=== PATIENT | female | born 1985 | race Caucasian/White ===

== ENCOUNTER 2018-02-09 12:11 | Emergency (ER) | payer MEDICAID ==
[2018-02-09] MEDS ORDERED: Sodium Chloride 0.9% 5 ML Syringe FLUSH PRN (12:50)
--- NOTE | 2018-02-09 12:56 | EDM.PDOC ---
ED HPI GENERAL MEDICAL PROBLEM - General Chief Complaint: General Stated Complaint: right sided chest pain Time Seen by Provider: 02/09/18 12:45 Source of Information: Reports: Patient History Limitations: Reports: No Limitations - History of Present Illness INITIAL COMMENTS - FREE TEXT/NARRATIVE: 33 YO WF complaining of right sided rib pain which began 1 week ago. Pt unsure if she had any injury but states her pain has become worse over the last 3 days. Pt denies any shortness of breath but states her pain is worse with deep inspiration. Pt reports tobacco use and hormone replacement therapy due to hysterectomy and history of pituitary adenoma. Pt denies exertional shortness of breath, diaphoresis, nausea/vomiting or radiating chest pain. Pt denies any recent illness, no coughing or hemotysis. Onset Date: 02/02/18 Duration: Week(s): (1) Location: Reports: Chest Quality: Reports: Ache Severity: Moderate Improves with: Reports: Rest Worsens with: Reports: Movement Associated Symptoms: Reports: Chest Pain. 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 Right Anterior Thoracic Pain Score (Numeric/FACES): 7 - Related Data Allergies Allergy/AdvReac Type Severity Reaction Status Date / Time acetaminophen Allergy Hives Verified 02/09/18 12:31 [From Tylenol-Codeine] codeine Allergy Hives Verified 02/09/18 12:31 [From Tylenol-Codeine] ketorolac [From Toradol] Allergy Hives Verified 02/09/18 13:56 naproxen Allergy Hives Verified 02/09/18 12:31 tramadol Allergy Hives Verified 02/09/18 12:31 Home Meds: Home Meds Estradiol 1 mg PO DAILY 02/09/18 [History] Hydrocodone/Acetaminophen [Hydrocodon-Acetaminophen 5-325] 1 each PO Q4HR PRN # 10 tablet 02/09/18 [Rx] Hydrocortisone 5 mg PO DAILY@1600 02/09/18 [History] Hydrocortisone 10 mg PO DAILY 02/09/18 [History] lamoTRIgine [Lamotrigine] 150 mg PO DAILY 02/09/18 [History] valACYclovir [Valtrex] 500 mg PO DAILY 02/09/18 [History] Social & Family History - Tobacco Use Smoking Status *Q: Current Every Day Smoker Years of Tobacco use: 15 Packs/Tins Daily: 0.5 Second Hand Smoke Exposure: Yes - Caffeine Use Caffeine Use: Reports: Energy Drinks, Soda - Recreational Drug Use Recreational Drug Use: No ED ROS GENERAL - Review of Systems Review Of Systems: See Below Constitutional: Reports: No Symptoms HEENT: Reports: No Symptoms Respiratory: Reports: Pleuritic Chest Pain Cardiovascular: Reports: Chest Pain Endocrine: Reports: No Symptoms GI/Abdominal: Reports: No Symptoms : Reports: No Symptoms Musculoskeletal: Reports: No Symptoms Skin: Reports: No Symptoms Neurological: Reports: No Symptoms Psychiatric: Reports: No Symptoms Hematologic/Lymphatic: Reports: No Symptoms Immunologic: Reports: No Symptoms ED EXAM, GENERAL - Physical Exam Exam: See Below Exam Limited By: No Limitations General Appearance: Alert, WD/WN, No Apparent Distress Nose: Normal Inspection, Normal Mucosa, No Blood Throat/Mouth: Normal Inspection, Normal Lips, Normal Teeth, Normal Gums, Normal Oropharynx, Normal Voice, No Airway Compromise Head: Atraumatic, Normocephalic Neck: Normal Inspection, Supple, Non-Tender, Full Range of Motion Respiratory/Chest: No Respiratory Distress, Lungs Clear, Normal Breath Sounds, No Accessory Muscle Use, Chest Non-Tender Cardiovascular: Normal Peripheral Pulses, Regular Rate, Rhythm, No Edema, No Gallop, No JVD, No Murmur, No Rub GI/Abdominal: Normal Bowel Sounds, Soft, Non-Tender, No Organomegaly, No Distention, No Abnormal Bruit, No Mass Back Exam: Normal Inspection, Full Range of Motion, NT Extremities: Normal Inspection, Normal Range of Motion, Non-Tender, Normal Capillary Refill, No Pedal Edema Neurological: Alert, Oriented, CN II-XII Intact, Normal Cognition, Normal Gait, Normal Reflexes, No Motor/Sensory Deficits Psychiatric: Normal Affect, Normal Mood EKG INTERPRETATION EKG Date: 02/09/18 Time: 12:58 Rhythm: NSR Rate (Beats/Min): 72 [place]: Normal P-Wave: Present QRS: Normal ST-T: Normal QT: Normal Comparison: NA - No Prior EKG Course - Vital Signs Last Recorded V/S: Last Vital Signs Temp 36.6 C 02/09/18 12:26 Pulse 77 02/09/18 12:26 Resp 18 02/09/18 12:26 BP 117/76 02/09/18 12:26 Pulse Ox 100 02/09/18 12:26 - Orders/Labs/Meds Orders: Active Orders 24 hr Category Date Time Status EKG Documentation Completion [RC] ASDIRECTED Care 02/09/18 12:37 Active Peripheral IV Care [RC] . DIRECTED Care 02/09/18 12:51 Active Chest 2V [CR] Stat Exams 02/09/18 12:36 Ordered Sodium Chloride 0.9% [Syrex Flush] Med 02/09/18 12:50 Active 5 ml FLUSH Q8HR PRN Peripheral IV Insertion Adult [OM.PC] Routine Oth 02/09/18 12:50 Ordered EKG 12 Lead [EK] Routine Ther 02/09/18 12:36 Ordered Medication Orders Sodium Chloride (Syrex Flush) 5 ml FLUSH Q8HR PRN PRN Reason: Keep Vein Open Labs: Laboratory Tests 02/09/18 02/09/18 02/09/18 Range/Units 13:00 13:00 13:00 WBC 10.74 H (5.00-10.00) 10^3/uL RBC 4.88 (3.80-5.50) 10^6/uL Hgb 15.1 (12.0-16.0) g/dL Hct 44.9 (37.0-47.0) % MCV 92.0 (82.0-92.0) fL MCH 30.9 (27.0-31.0) pg MCHC 33.6 (32.0-36.0) g/dL RDW 13.2 (11.5-14.5) % Plt Count 307 (150-400) 10^3/uL MPV 8.9 (7.4-10.4) fL Immature Gran % (Auto) 0.2 (0.0-5.0) % Neut % (Auto) 71.3 H (50.0-70.0) % Lymph % (Auto) 22.3 (20.0-40.0) % [place] % (Auto) 5.3 (2.0-8.0) % Eos % (Auto) 0.5 L (1.0-3.0) % Baso % (Auto) 0.4 (0.0-1.0) % Immature Gran # (Auto) 0.02 (0.00-0.50) 10^3/uL Neut # (Auto) 7.67 H (2.50-7.00) 10^3/uL Lymph # (Auto) 2.39 (1.00-4.00) 10^3/uL [place] # (Auto) 0.57 (0.10-0.80) 10^3/uL Eos # (Auto) 0.05 L (0.10-0.30) 10^3/uL Baso # (Auto) 0.04 (0.00-0.10) 10^3/uL D-Dimer, Quantitative < 100 (<400) ng/mL Sodium 142 (136-145) mmol/L Potassium 3.7 (3.3-5.3) mmol/L Chloride 105 (98-115) mmol/L Carbon Dioxide 28.3 (21.0-32.0) mmol/L Anion Gap 12.4 (5-15) mmol/L BUN 9 (6-25) mg/dL Creatinine 0.77 (0.51-1.17) mg/dL Est Cr Clr Drug Dosing 102.00 mL/min Estimated GFR (MDRD) > 60 mL/min Glucose 97 mg/dL Calcium 8.7 (8.7-10.3) mg/dL Total Bilirubin 0.3 (0.2-1.0) mg/dL AST 19 (15-37) U/L ALT 27 (12-78) U/L Alkaline Phosphatase 85 (46-116) IU/L Creatine Kinase 81 (26-276) U/L CK-MB (CK-2) 1.10 (0.00-4.30) ng/mL Troponin I 0.04 (0.00-0.070) ng/mL Total Protein 7.2 (6.4-8.2) g/dL Albumin 3.94 (3.00-4.80) g/dL Meds: Medications Generic Name Dose Route Start Last Admin Trade Name Freq PRN Reason Stop Dose Admin Sodium Chloride 5 ml 02/09/18 12:50 Syrex Flush FLUSH Q8HR PRN Keep Vein Open - Radiology Interpretation Free Text/Narrative:: CXR- NAD Departure - Departure Time of Disposition: 13:50 Disposition: Home, Self-Care 01 Condition: Good Clinical Impression: Chest wall pain - Discharge Information Prescriptions: Hydrocodone/Acetaminophen [Hydrocodon-Acetaminophen 5-325] 1 each PO Q4HR PRN # 10 tablet PRN Reason: Pain Instructions: Chest Wall Pain, [id number] Referrals: PCP,Not In Area [Primary Care Provider] - Forms: ED Department Discharge Additional Instructions: 1. Discharge home 2. motrin 800mg PO TID x 5 days 3. supportive care 4. follow up in clinic for further evaluation and treatment 5. return to ER for worsening symptoms - My Orders Last 24 Hours: My Active Orders 02/09/18 12:36 Chest 2V [CR] Stat EKG 12 Lead [EK] Routine 02/09/18 12:37 EKG Documentation Completion [RC] ASDIRECTED 02/09/18 12:50 Sodium Chloride 0.9% [Syrex Flush] 5 ml FLUSH Q8HR PRN Peripheral IV Insertion Adult [OM.PC] Routine 02/09/18 12:51 Peripheral IV Care [RC] . DIRECTED - Assessment/Plan Last 24 Hours: My Active Orders 02/09/18 12:36 Chest 2V [CR] Stat EKG 12 Lead [EK] Routine 02/09/18 12:37 EKG Documentation Completion [RC] ASDIRECTED 02/09/18 12:50 Sodium Chloride 0.9% [Syrex Flush] 5 ml FLUSH Q8HR PRN Peripheral IV Insertion Adult [OM.PC] Routine 02/09/18 12:51 Peripheral IV Care [RC] . DIRECTED Assessment:: 1. Chest wall pain 2. tobacco use- education on stopping smoking especially with HRT Plan: 1. Discharge home 2. motrin 800mg PO TID x 5 days 3. supportive care 4. follow up in clinic for further evaluation and treatment 5. return to ER for worsening symptoms
[2018-02-09 13:42] LABS: ANION GAP 12.4 mmol/L (5-15); CHLORIDE,CL 105 mmol/L (98-115); SODIUM,NA 142 mmol/L (136-145)
[2018-02-09] MEDS ORDERED: Ketorolac 60 MG/2 ML SDV IM ONE (13:47)
[2018-02-09] MEDS ORDERED: Ketorolac 30 MG/ML SDV IVPUSH ONE (13:49)
[2018-02-09] MEDS ORDERED: Acetaminophen/HYDROcodone 325-10 MG Tab PO ONE (13:56)
== END 2018-02-09 14:10 | disposition home or self-care (01) ==
LOC: KA.ED 12:11
DX: R07.89 Other chest pain (principal); F17.210 Nicotine dependence, cigarettes, uncomplicated; Z88.5 Allergy status to narcotic agent; Z88.8 Allergy status to other drugs, medicaments and biological substances; Z79.899 Other long term (current) drug therapy; Z79.890 Hormone replacement therapy; Z90.710 Acquired absence of both cervix and uterus
CPT/HCPCS: 71046; 80053; 82550; 82553; 84484; 85025; 85379; 93005; 99284; A9270

== ENCOUNTER 2018-07-13 14:00 | Emergency (ER) | payer MEDICAID ==
--- NOTE | 2018-07-13 14:53 | EDM.PDOC ---
ED HPI GENERAL MEDICAL PROBLEM - General Chief Complaint: Lower Extremity Injury/Pain Stated Complaint: leg pain Time Seen by Provider: 07/13/18 14:30 Source of Information: Reports: Patient, Family History Limitations: Reports: No Limitations - History of Present Illness INITIAL COMMENTS - FREE TEXT/NARRATIVE: 33-year-old female presents to the emergency room with an injury to her left lower extremity. Patient states that she slipped on the ice July 03 injuring her lower leg. She was seen in [facility] on 06 July 3 days later. X- rays revealed a minimally displaced proximal fibula fracture. She was given crutches and placed in a knee immobilizer. Patient was scheduled with orthopedics next in [place] for follow-up. Patient became concerned that she was getting the right information and care and became quite anxious with regards to her injury. She presents to the emergency room for further instruction and evaluation. Her pain is well-controlled. She denies numbness or tingling in her lower leg. She denies any ankle pain. She is only tender proximally and lateral of lower leg just distal to the knee. She denies significant swelling. She states that the crutches that she was given are too big for her. She is 5 foot 7 and the crutches are instructed for someone of 5 foot 10 or taller. She is accompanied with her mom. She denies any other extremity injuries. She denies any recent illnesses or other complaints. 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: Other Medication(s) (norco) Left Lower Leg Pain Score (Numeric/FACES): 5 - Related Data Allergies Allergy/AdvReac Type Severity Reaction Status Date / Time acetaminophen Allergy Hives Verified 07/13/18 14:12 [From Tylenol-Codeine] codeine Allergy Hives Verified 07/13/18 14:12 [From Tylenol-Codeine] ketorolac [From Toradol] Allergy Hives Verified 07/13/18 14:12 naproxen Allergy Hives Verified 07/13/18 14:12 tramadol Allergy Hives Verified 07/13/18 14:12 Home Meds: Home Meds Estradiol 1 mg PO DAILY 02/09/18 [History] Hydrocodone/Acetaminophen [Hydrocodon-Acetaminophen 5-325] 1 each PO Q4HR PRN # 10 tablet 02/09/18 [Rx] Hydrocortisone 5 mg PO DAILY@1600 02/09/18 [History] Hydrocortisone 10 mg PO DAILY 02/09/18 [History] lamoTRIgine [Lamotrigine] 150 mg PO BEDTIME 02/09/18 [History] valACYclovir [Valtrex] 500 mg PO BEDTIME 02/09/18 [History] Past Medical History HEENT History: Reports: Impaired Vision Cardiovascular History: Reports: None Respiratory History: Reports: None Gastrointestinal History: Reports: None Genitourinary History: Reports: None 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: Musculoskeletal History: Reports: Fracture Neurological History: Reports: None Psychiatric History: Reports: Anxiety, Bipolar, Depression, PTSD Endocrine/Metabolic History: Reports: Other (See Below) Other Endocrine/Metabolic History: pituitary tumor Hematologic History: Reports: None Immunologic History: Reports: None Oncologic (Cancer) History: Reports: None Dermatologic History: Reports: None - Infectious Disease History Infectious Disease History: Reports: Chicken Pox - Past Surgical History Cardiovascular Surgical History: Reports: None Respiratory Surgical History: Reports: None GI Surgical History: Reports: None Female Surgical History: Reports: Hysterectomy, Salpingo-Oophorectomy, Tubal Ligation 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 Neurological Surgical History: Reports: None Musculoskeletal Surgical History: Reports: None Oncologic Surgical History: Reports: None Dermatological Surgical History: Reports: None Social & Family History - Family History Family Medical History: Noncontributory - Tobacco Use Smoking Status *Q: Current Every Day Smoker Years of Tobacco use: 17 Packs/Tins Daily: 0.5 - Caffeine Use Caffeine Use: Reports: Energy Drinks, Soda Caffeine Use Comment: Drinks "a lot" - Alcohol Use Days Per Week of Alcohol Use: 2 Number of Drinks Per Day: 4 Total Drinks Per Week: 8 - Recreational Drug Use Recreational Drug Use: No Review of Systems - Review of Systems Review Of Systems: ROS reveals no pertinent complaints other than HPI. ED EXAM, GENERAL - Physical Exam Exam: See Below Exam Limited By: No Limitations General Appearance: Alert, WD/WN, No Apparent Distress Nose: Normal Inspection Throat/Mouth: Normal Inspection Head: Atraumatic Neck: Normal Inspection Respiratory/Chest: No Respiratory Distress, No Accessory Muscle Use Peripheral Pulses: 2+: Posterior Tibial (L), Dorsalis Pedis (L) Extremities: Other (Left lower extremity examination reveals normal ankle range of motion she has no bony tenderness medially or laterally. She has no tenderness along the syndesmosis. She has no pain with ankle range of motion. She has good dorsal pedis pulses distally with intact sensation to light touch abouttheankle.Shehasnotendernessalongtheshindistallymidshaftorproximally.Sheisdi stinctlytendertopalpationalongtheproximallateralaspectnearthefibulahead.Shehasfu llkneerangeofmotionfullhiprangeofmotionwithnopain ordiscomfort.Thereisnoswellingabouttheknee.) Course - Vital Signs Last Recorded V/S: Last Vital Signs Temp 97.1 F 07/13/18 14:16 Pulse 81 07/13/18 14:16 Resp 16 07/13/18 14:16 BP 123/67 07/13/18 14:16 Pulse Ox 99 07/13/18 14:16 - Radiology Interpretation Free Text/Narrative:: X-rays from 07/06/18 Left tib-fib radiographs 2 views Interpretation: there is a proximal fibula fracture minimally displaced. Knee and ankle mortise are in place Impression: Left proximal third fibula fracture minimally displaced Departure - Departure Time of Disposition: 15:16 Disposition: Home, Self-Care 01 Condition: Good Clinical Impression: Closed fracture of fibula, proximal, left Qualifiers: Encounter type: initial encounter Fracture morphology: other fracture Qualified Code(s): S82.832A - Other fracture of upper and lower end of left fibula, initial encounter for closed fracture - Discharge Information Instructions: Fibular Ankle Fracture Treated With or Without Immobilization, Adult, Crutch Use, Adult Referrals: PCP,Not In Area [Primary Care Provider] - Forms: ED Department Discharge - Assessment/Plan Assessment:: Left proximal fibula fracture, minimally displaced Plan: 1. Crutches 6 weeks 2. 25 pound light partial weightbearing left 3. Follow-up with orthopedics in 1 month for repeat x-ray left tib-fib. Patient will be seen in outreach clinic in [place] in July.
== END 2018-07-13 15:30 | disposition home or self-care (01) ==
LOC: KA.ED 14:00
DX: S82.832A Other fracture of upper and lower end of left fibula, initial encounter for closed fracture (principal); F41.9 Anxiety disorder, unspecified; F32.9 Major depressive disorder, single episode, unspecified; Z79.899 Other long term (current) drug therapy; W00.0XXA Fall on same level due to ice and snow, initial encounter
CPT/HCPCS: 99283

== ENCOUNTER 2021-04-03 13:15 | Emergency (ER) | payer MEDICAID ==
--- NOTE | 2021-04-03 15:35 | EDM.PDOC ---
ED HPI GENERAL MEDICAL PROBLEM - General Chief Complaint: Respiratory Problem Stated Complaint: CONGESTION Time Seen by Provider: 04/03/21 13:20 Source of Information: Reports: Patient History Limitations: Reports: No Limitations - History of Present Illness INITIAL COMMENTS - FREE TEXT/NARRATIVE: 36-year-old female reports approximately 5 to 6-day history of muscle aches, cough malaise, sore throat, ear pain. She is not aware of any Covid exposure. She is a smoker. She has been taking some [id number] decongestants NyQuil. She denies significant shortness of breath. Her cough has been dry. She lives in [place] and is usually seen at the clinic over there when needed. She denies any nausea or vomiting no abdominal pain no abdominal cramps. No diarrhea. Onset: Gradual Onset Date: 03/29/21 Duration: Day(s):, Constant Location: Reports: Face, Chest Quality: Reports: Ache Severity: Moderate Improves with: Reports: Medication Worsens with: Reports: None Associated Symptoms: Reports: Cough, Malaise. Denies: Confusion, Chest Pain, Diaphoresis, Nausea/Vomiting, Shortness of Breath - Related Data Allergies Allergy/AdvReac Type Severity Reaction Status Date / Time acetaminophen Allergy Hives Verified 04/03/21 13:52 [From Tylenol-Codeine] codeine Allergy Hives Verified 04/03/21 13:52 [From Tylenol-Codeine] ketorolac [From Toradol] Allergy Hives Verified 04/03/21 13:52 naproxen Allergy Hives Verified 04/03/21 13:52 tramadol Allergy Hives Verified 04/03/21 13:52 Home Meds: Home Meds Hydrocortisone 5 mg PO DAILY@1600 02/09/18 [History] Hydrocortisone 10 mg PO DAILY 02/09/18 [History] estradioL [Estradiol] 1 mg PO DAILY 02/09/18 [History] lamoTRIgine [Lamotrigine] 150 mg PO BEDTIME 02/09/18 [History] valACYclovir [Valtrex] 500 mg PO BEDTIME 02/09/18 [History] Past Medical History HEENT History: Reports: Impaired Vision Cardiovascular History: Reports: None Respiratory History: Reports: None Gastrointestinal History: Reports: None Genitourinary History: Reports: None 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: Musculoskeletal History: Reports: Fracture Neurological History: Reports: None Psychiatric History: Reports: Anxiety, Bipolar, Depression, PTSD Endocrine/Metabolic History: Reports: Other (See Below) Other Endocrine/Metabolic History: pituitary tumor Hematologic History: Reports: None Immunologic History: Reports: None Oncologic (Cancer) History: Reports: None Dermatologic History: Reports: None - Infectious Disease History Infectious Disease History: Reports: Chicken Pox - Past Surgical History Cardiovascular Surgical History: Reports: None Respiratory Surgical History: Reports: None GI Surgical History: Reports: None Female Surgical History: Reports: Hysterectomy, Salpingo-Oophorectomy, Tubal Ligation 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 Denies: Fever HEENT: Reports: Ear Pain, Rhinitis, Throat Pain. Denies: Ear Discharge, Throat Swelling Respiratory: Reports: Cough. Denies: Shortness of Breath, Wheezing Cardiovascular: Reports: No Symptoms Endocrine: Reports: No Symptoms GI/Abdominal: Reports: No Symptoms : Reports: No Symptoms Musculoskeletal: Reports: Muscle Pain Skin: Reports: No Symptoms Neurological: Reports: No Symptoms Psychiatric: Reports: No Symptoms Hematologic/Lymphatic: Reports: No Symptoms Immunologic: Reports: No Symptoms ED EXAM, GENERAL - Physical Exam Exam: See Below Exam Limited By: No Limitations General Appearance: Alert, No Apparent Distress, Thin Eye Exam: Bilateral Eye: EOMI, PERRL Ears: Normal External Exam, Normal Canal, Hearing Grossly Normal, Normal TMs Ear Exam: Bilateral Ear: TM normal Nose: Normal Inspection, Normal Mucosa, No Blood, Clear Rhinorrhea Throat/Mouth: Normal Inspection, Normal Oropharynx, Normal Voice, No Airway Compromise Head: Atraumatic, Normocephalic Neck: Normal Inspection, Supple, Non-Tender, Full Range of Motion. No: Lymphadenopathy (L), Lymphadenopathy (R) Respiratory/Chest: No Respiratory Distress, Lungs Clear, Normal Breath Sounds, No Accessory Muscle Use, Chest Non-Tender Cardiovascular: Regular Rate, Rhythm GI/Abdominal: Soft Back Exam: Normal Inspection Extremities: Normal Inspection, No Pedal Edema Neurological: Alert, Oriented, No Motor/Sensory Deficits Skin Exam: Warm, Dry, Intact, Normal Color, No Rash Lymphatic: No Adenopathy Course - Vital Signs Last Recorded V/S: Last Vital Signs Temp 96.7 F L 04/03/21 13:54 Pulse 86 04/03/21 13:54 Resp 20 04/03/21 13:54 BP 107/80 04/03/21 13:54 Pulse Ox 98 04/03/21 13:54 - Orders/Labs/Meds Labs: Laboratory Tests 04/03/21 Range/Units 14:00 SARS CoV-2 RNA Rapid JONATHON Negative (NEGATIVE) Departure - Departure Time of Disposition: 15:30 Disposition: Home, Self-Care 01 Condition: Good Clinical Impression: Viral upper respiratory tract infection with cough - Discharge Information Instructions: Upper Respiratory Infection, Adult, [id number] Referrals: PCP,Not In Area [Primary Care Provider] - Forms: ED Department Discharge Care Plan Goals: 1. Rest 2. Continue and encourage oral hydration and drinking plenty of fluids particularly water. 3. Tylenol for fever 4. Ibuprofen for aches and pains 5. Decongestants for symptomatic relief upper respiratory infection Sepsis Event Note (ED) - Evaluation Sepsis Screening Result: No Definite Risk - Focused Exam Vital Signs: Vital Signs Temp Pulse Resp BP Pulse Ox 04/03/21 13:54 96.7 F L 86 20 107/80 98 - Assessment/Plan Assessment:: Viral upper respiratory infection Plan: 1. Rest 2. Continue and encourage oral hydration and drinking plenty of fluids particularly water. 3. Tylenol for fever 4. Ibuprofen for aches and pains 5. Decongestants for symptomatic relief upper respiratory infection
== END 2021-04-03 15:45 | disposition home or self-care (01) ==
LOC: KA.ED 13:15
DX: J06.9 Acute upper respiratory infection, unspecified (principal); F17.200 Nicotine dependence, unspecified, uncomplicated; Z88.5 Allergy status to narcotic agent; Z88.6 Allergy status to analgesic agent; Z79.899 Other long term (current) drug therapy; Z20.822 Contact with and (suspected) exposure to COVID-19
CPT/HCPCS: 99283; 99284; U0002

== ENCOUNTER 2023-11-17 11:51 | Emergency (ER) | payer MEDICAID ==
[2023-11-17] MEDS: Acetaminophen/HYDROcodone 325-10 MG Tab PO ONE (12:48)
== END 2023-11-17 13:18 | disposition home or self-care (01) ==
LOC: KA.ED 11:51
DX: S29.012A Strain of muscle and tendon of back wall of thorax, initial encounter (principal); Z88.6 Allergy status to analgesic agent; Z88.5 Allergy status to narcotic agent; Z88.8 Allergy status to other drugs, medicaments and biological substances; Z79.899 Other long term (current) drug therapy; Z90.710 Acquired absence of both cervix and uterus; X50.0XXA Overexertion from strenuous movement or load, initial encounter; Y93.89 Activity, other specified; Y99.0 Civilian activity done for income or pay
CPT/HCPCS: 99283; A9270-GY

== ENCOUNTER 2024-08-20 19:20 | Emergency (ER) | payer MEDICAID | END 2024-08-20 20:24 | disposition home or self-care (01) | LOC: KA.ED 19:20 | DX: M25.461 Effusion, right knee (principal); M25.561 Pain in right knee; F17.210 Nicotine dependence, cigarettes, uncomplicated; Z88.5 Allergy status to narcotic agent; Z88.8 Allergy status to other drugs, medicaments and biological substances; Z79.899 Other long term (current) drug therapy; Z86.16 Personal history of COVID-19 | CPT/HCPCS: 73562-RT; 99283 ==